=== PATIENT | female | born 1985 | race Caucasian/White ===

== ENCOUNTER 2020-09-07 07:58 | Outpatient (CLI) | payer BC | END 2020-09-07 07:59 | disposition home or self-care (01) | LOC: CSHMRI 07:58 | PROVIDERS: ATTEND Psychiatry & Neurology Neurology | DX: R42 Dizziness and giddiness (principal); R27.0 Ataxia, unspecified | CPT/HCPCS: 70544; 70549 ==

== ENCOUNTER 2021-07-09 12:20 | Outpatient (CLI) | payer BC ==
[2021-07-10 07:55] LABS: SARS-CoV-2 PCR by NAA Not Detected (NotDetected)
== END 2021-07-09 12:21 | disposition home or self-care (01) ==
LOC: CSHLAB 12:20
PROVIDERS: ATTEND Internal Medicine
DX: Z20.822 Contact with and (suspected) exposure to COVID-19 (principal)
CPT/HCPCS: U0003; U0005

== ENCOUNTER 2021-07-12 07:34 | Outpatient (CLI) | payer BC | END 2021-07-12 07:35 | disposition home or self-care (01) | LOC: CSHCP 07:34 | PROVIDERS: ATTEND Internal Medicine | DX: J45.30 Mild persistent asthma, uncomplicated (principal); J44.9 Chronic obstructive pulmonary disease, unspecified | CPT/HCPCS: 94060; 94726; 94729; 94760 ==